=== PATIENT | male | born 1965 | race Caucasian/White ===

== ENCOUNTER 2023-09-17 12:47 | Emergency (ER) | payer OTHER, SELFPAY ==
--- NOTE | ~2023-09-17 | XR_ITS ---
EXAMINATION: XR HAND, RIGHT CLINICAL INFORMATION: Trauma COMPARISON: None available. TECHNIQUE: PA, lateral, and oblique views of the right hand. FINDINGS: Fracture of the distal aspect distal phalanx third digit. Approximately 2 mm distal distal distraction of the distal main fracture fragment and one bone width ventral migration of the distal main fracture fragment relative to the proximal fracture fragment. The fracture appears comminuted on the lateral study. otherwise degenerative changes. XR/XR hand RT min 3V IMPRESSION: Comminuted fracture distal aspect distal phalanx third digit with distraction as described
[2023-09-17 13:51] VITALS: BP 177/105; PULSE 53; RESP 16; TEMP 36.7; O2SAT 98; BMI 26.0
--- NOTE | 2023-09-17 13:51 | ED_ITS ---
HPI - Extremity Injury (Upper) General Chief Complaint: Extremity Problem Stated Complaint: laceration with severed bone? Time Seen by Provider: 09/17/23 17:17 Source: patient Mode of arrival: ambulatory Limitations: no limitations History of Present Illness HPI narrative: Patient is a 58-year-old male with no documented PMH presenting with a laceration of the right middle finger after dropping a metal storm drain on it at work 5 hours ago. Denies numbness, tingling, weakness, and decreased ROM. He is unsure of his tetanus status. Related Data Previous Rx's Medication Instructions Recorded cephalexin 500 mg tablet 500 mg PO Q6H 10 days #40 tabs 09/17/23 ketorolac 10 mg tablet 10 mg PO TID PRN pain 5 days #15 09/17/23 tabs morphine 15 mg immediate release 15 mg PO Q6H PRN pain 5 days #10 09/17/23 tablet tabs Allergies Allergy/AdvReac Type Severity Reaction Status Date / Time No Known Allergies Allergy Verified 09/17/23 13:01 Review of Systems Review of Systems: Constitutional : No Weight loss, No Fever, No Chills, No Fatigue, No Malaise ENT/Mouth : No sore throat, No Rhinorrhea Eyes: No Eye Pain, No Swelling, No Redness Cardiovascular : No Chest Pain, No SOB, No Dyspnea on Exertion, No Orthopnea, No Edema, No Palpitations Respiratory : No Cough, No Sputum, No Wheezing Gastrointestinal : No Nausea, No Vomiting, No Diarrhea, No Constipation, No abdominal Pain, No Hematochezia, No Melena Genitourinary : No Dysuria, No Urinary Frequency, No Hematuria, Musculoskeletal : + Right middle finger pain, No Myalgias, No Joint Swelling Skin : No Skin Lesions, No rash Neuro : No Weakness, No Numbness, No Dizziness, No Headache All other systems reviewed and are negative [facility] Past Medical History Attestation statement: The following information was validated with the patient. Source: old records reviewed and nursing notes reviewed Social History Social History Smoked in Last 30 Days: No Use of substances other than those prescribed or required for medical reasons: No Advance Directives: No Advance Directives Information Provided: No Physical Exam Vital Signs: Vital Signs: Last Vital Signs Temp 98.2 F 09/17/23 17:28 Pulse 80 09/17/23 17:28 Resp 16 09/17/23 17:28 BP 130/80 09/17/23 17:28 Pulse Ox 98 09/17/23 17:28 O2 Del Method Room Air 09/17/23 17:28 BMI result Body Mass Index 26.0 Patient noted to be hypertensive likely secondary to pain. Remainder of vitals stable. Appearance: Alert.? Oriented X3.? No acute distress.? Head: Normocephalic, atraumatic, no step-offs or deformities Eyes: Pupils equal, round and reactive to light.? Neck: Normal inspection.? Neck supple.? CVS: Normal heart rate and rhythm.? Pulses normal.? Respiratory: No respiratory distress.? Breath sounds normal.? Abdomen: Soft and nontender.? Skin: Skin warm and dry.? Normal skin color.? Normal skin turgor.? Extremities: 1 cm laceration above the DIP involving the base of the nail & nailbed and extending to the bone. Decreased ROM of the affected finger secondary to pain. No lower extremity edema.? No calf ttp. 5/5 strength to bilateral upper and lower extremities Neuro: Oriented X 3.? No motor deficit.? No sensory deficit. Course Course Course Narrative: RME - 58 yo right hand dominant male presents to the ER from [facility] for evaluation of right middle finger injury after he dropped a metal storm drain onto his finger today. XR with +distal tuft fx upon review. Plan: wound repair, abx Reevaluation(s) Reevaluation #1: X-ray showing comminuted fracture of distal phalanx 3rd digit with distraction is described, this laceration was repaired with6 X 4-0 nonabsorbable sutures, patient be discharged home with Keflex to discuss this case with Ortho who states no need for hospital admission p.o. antibiotics and follow up as soon as possible patient should call tomorrow. Will give morphine and Toradol for pain control however will not give morphine here as patient is driving will send home with some. Educated patient on diagnosis and treatment plan, answered all question, patient verbalizes understanding. At this time patient will be discharged home, advised to return with new or worsening symptoms. Educated on worrisome signs and symptoms and when to return. At this time I feel comfortable discharge home. Time: 19:23 Medications Administered Discontinued Medications Generic Name Dose Route Start Last Admin Trade Name Freq PRN Reason Stop Dose Admin Diphtheria/Tetanus/Acell Pertussis 0.5 ml 09/17/23 13:52 09/17/23 17:19 Diphth,Pertus(Acell),Tet Adult 0.5 Ml Syringe IM 09/17/23 13:53 0.5 ml .ONCE ONE Administration Medical Decision Making Medical Decision Making MDM Narrative: 58-year-old male with presenting with a laceration of the right middle finger after dropping a metal storm drain on it at work 5 hours ago PE w/ : 1 cm laceration above the DIP involving the base of the nail & nailbed and extending to the bone. Decreased ROM of the affected finger secondary to pain. No lower extremity edema.? No calf ttp. 5/5 strength to bilateral upper and lower extremities Likely laceration vs. open fracture vs. ligamental/tendon injury. Unlikely nerve injury, closed fracture, or compartment syndrome. No signs of neurovascular compromise. Plan repair antibiotics, tetanus Differential Diagnosis Differential Diagnoses: The differential diagnosis associated with the presentation includes Likely laceration vs. open fracture vs. ligamental/tendon injury. Unlikely nerve injury, closed fracture, or compartment syndrome. No signs of neurovascular compromise. Admission/Observation Consideration of admission/observation: Escalation of care including admission/observation considered Unlikely Consult Healthcare Provider Management of the patient was discussed with: [facility] Independent Interpretation I performed an independent interpretation of an: Plain X-Ray (FINDINGS: Fracture of the distal aspect distal phalanx third digit. Approximately 2 mm distal distal distraction of the distal main fracture fragment and one bone width ventral migration of the distal main fracture fragment relative to the proximal fracture fragment. The fracture appears comminuted) Radiology Impression Discussion of test interpretation with radiology: I have reviewed the radiologist's reading. Prescription Management I considered prescription management with: Pain Medication and Antibiotic Critical Care Time Critical Care Time Critical Care Time: Yes Total Critical Care Time: 60 Attestation: I attest to this time spent taking care of the patient, obtaining history, physical, reviewing labs, imaging, speaking to my attending, speaking to specialist. Discharge Plan Discharge Clinical Impression: Open fracture, Laceration of finger Patient Disposition: Home, Self-Care Instructions: Laceration (ED) Additional Instructions: Take your medications as prescribed. If you were prescribed antibiotics today, it is important that you take your medication to their entirety, do not skip any doses, do not finish them early. Follow-up with your primary care provider this week. Call ortho tomorrow to schedule an apt. Follow up with [facility] as this was a work related injury. Return to the emergency department with new or worsening symptoms. Such as fevers, chills, chest pain, shortness of breath, nausea, vomiting, dizziness, headache, vision changes, lethargy In case of emergency call 911 A narcotic has been sent to your pharmacy please take this as prescribed. Do not take more than the prescribed dose. Narcotic medications can cause addiction. Please do not mix them with alcohol. Do not take them while driving or operating machinery. Do not take them with any other narcotics. Do not share them with friends or family. They can cause constipation. Take them only for severe pain. Suture removal in 7- 10 days. XR/XR hand RT min 3V IMPRESSION: Comminuted fracture distal aspect distal phalanx third digit with distraction as described Prescriptions: New cephalexin 500 mg tablet 500 mg PO Q6H 10 Days Qty: 40 0RF ketorolac 10 mg tablet 10 mg PO TID PRN (Reason: pain) 5 Days Qty: 15 0RF morphine 15 mg tablet 15 mg PO Q6H PRN (Reason: pain) 5 Days Qty: 10 0RF Rx Instructions: Partial Fill upon patient request. Referrals: [facility] [Provider Group] - 1 day Yannick Oliva MD [Primary Care Provider] - 2 days Stand Alone Forms: Work/School Release
[2023-09-17] MEDS: Diphth,Pertus(ACell),Tet Adult 0.5 ML SYRINGE IM (17:19)
[2023-09-17 17:28] VITALS: BP 130/80; PULSE 80; RESP 16; TEMP 36.8; O2SAT 98
[2023-09-17] MEDS: Bacitracin Oint 0.9 GM PACKET 1 APPL TOPICAL ×2 (19:49→19:50)
[2023-09-17] MEDS: Ketorolac Tromethamine 30 MG/ML VIAL IM (19:49)
[2023-09-17] MEDS: Lidocaine HCl 1 % MPF 30 ML VIAL SUBCUT (19:54)
== END 2023-09-17 19:55 | disposition home or self-care (01) ==
PROVIDERS: Emergency Provider Student in an Organized Health Care Education/Training Program; PCP Internal Medicine
DX: S67.192A Crushing injury of right middle finger, initial encounter (principal); S61.312A Laceration without foreign body of right middle finger with damage to nail, initial encounter; S62.632B Displaced fracture of distal phalanx of right middle finger, initial encounter for open fracture; W20.8XXA Other cause of strike by thrown, projected or falling object, initial encounter; Y93.9 Activity, unspecified; Y92.9 Unspecified place or not applicable; Y99.0 Civilian activity done for income or pay
CPT/HCPCS: 12001; 73130; 90471; 90715; 96372; 99284; J1885